=== PATIENT | female | born 1980 | race Hispanic/Latino ===

== ENCOUNTER → 2019-07-30 | Day surgery (SDC) | payer OTHER ==
--- NOTE | 2019-07-29 11:54 | Pre Op History & Physical ---
DATE OF SURGERY: July 30, 2019. CHIEF COMPLAINT: Chronic sinusitis, nasal obstruction, nasal deformity. HISTORY OF PRESENT ILLNESS: This 39 years old female has more than six months history of nasal obstruction. The patient has been treated with topical nasal steroids, antibiotics for more than 12 weeks. She has recurrent runny nose and postnasal drip. The patient has been treated by health navigator with allergy shots for three years with no improvement of the condition. CT scan of paranasal sinuses done before surgery showed the patient has deviated nasal septum to the left side with not much sinus problem during the CAT scan. REVIEW OF SYSTEMS: System review showed no recent cardiovascular, respiratory, or GI problems. PAST MEDICAL HISTORY: The patient has no significant medical problem. PAST SURGICAL HISTORY: She had previous right bunionectomy and cholecystectomy. ALLERGIES: SHE IS ALLERGIC TO SULFA. MEDICATIONS: She is on cyclobenzaprine and pantoprazole. SOCIAL HISTORY: Nonsmoker. Nondrinker. FAMILY HISTORY: Noncontributory. PHYSICAL EXAMINATION: VITAL SIGNS: On examination, the patient's vital signs were within normal limits. HEENT: Ear exam showed normal tympanic membranes bilaterally. Nasal exam showed hypertrophy of the inferior turbinate with deviated nasal septum to the left side about 40% with a spur. Oropharynx and oral cavity showed 2+ tonsils bilaterally with Mallampati level 2. NECK: Showed no lymph node or thyroid palpable. CHEST: Showed good air entry bilaterally. CARDIOVASCULAR: Showed S1 and S2. No murmur noted. ASSESSMENT AND PLAN: Mrs. Coffman has nasal obstruction, nasal deformity secondary to deviated nasal septum. The suggested treatment is a septoplasty and other necessary procedure. The complication of the procedure includes, but not limited to bleeding, infection, septal perforation, septal hematoma, persistent nasal obstruction, persistent nasal crusting, nasal deformity, recurrence of the sinus problem along with persistent drainage from the nose and persistent postnasal drip with CSF leak and blindness and double vision. Alternative will be continue observation, continue antibiotic therapy, topical nasal steroid therapy, systemic steroid therapy, decongestant. The patient has elected to undergo the surgical procedure. MD QUOC Olivas/SAM /[id number]
[~2019-07-30] MED LIST: DEXAMETHASONE SOD PHOS INJ 4 MG/ML VIAL ONE; EPINEPHRINE HCL 1:1000 1ML 1 MG/ML AMP ONE; FENTANYL CITRATE/PF 100MCG/2 ML INJ ONE; LIDOCAINE 1% W/EPINEPHRINE 20 ML VIAL ONE; LIDOCAINE HCL 2% LOCAL INJ 5 ML SDV VIAL INJ ONE; MIDAZOLAM HCL 2 MG/2 ML VIAL ONE; ONDANSETRON HCL INJ 2MG/ML 2ML 2 MG/ML VIAL ONE; PANTOPRAZOLE SO40 MG PO; PROPOFOL IV EMULSION 10 MG/ML 20 ML VIAL ONE; ROCURONIUM BROMIDE 10 MG/ML 5ML VIAL ONE; SEVOFLURANE INHAL SOLN 250 ML PEN BTL ONE; SUDAFED PE SIN1 EAC2; SUGAMMADEX SODIUM 200 MG/2 ML VIAL IV ONE; TYLENOL
[2019-07-30 09:15] VITALS: BP 118/68
--- NOTE | 2019-07-30 15:01 | Operative Report ---
DATE OF PROCEDURE: 07/30/2019 SURGEON: Scot Rueda MD PREOPERATIVE DIAGNOSES: Nasal obstruction and nasal deformity. POSTOPERATIVE DIAGNOSES: Nasal obstruction and nasal deformity. OPERATIVE PROCEDURE: Septoplasty and rigid nasal endoscopy. ANESTHESIA: Anesthesiology group. INDICATIONS: This 39-year-old female has history of nasal obstruction. The patient has postnasal drip and discharge from her nose. She has been treated with topical nasal steroid, decongestant, and antibiotics, with no improvement. On examination, she was noted to have a deviated nasal septum to the left side with a septal spur about 30% with a deviated nasal septum in the midportion on the right side about 20%. It was decided that septoplasty and other necessary procedure with a rigid nasal endoscopy will be beneficial for her. DESCRIPTION OF PROCEDURE: The patient was taken to the operating room, put under general anesthesia, endotracheally intubated. The nose was injected with 1% Xylocaine with 1:100,000 epinephrine for hemostasis. Epinephrine-soaked pledget was inserted in nose and subsequently removed. A hemitransfixion incision was done on the left side. The mucoperichondrial flap was elevated on the left. The bony cartilaginous junction was encountered and this was . The perpendicular plate of the ethmoid was transected. This was removed along with the vomer. The septal spur collagenous portion was removed using a [place] elevator and bony spur using a 4 mm straight chisel. During this procedure, the rigid nasal endoscopy, a 0-degree was used to assist in the dissection. The quadrangular cartilage after being freed from posterior and inferior constraint was able to swing back into the midline. The hemitransfixion incision was closed using 4-0 chromic suture in interrupted fashion. Septal whipstitch was done using 4-0 plain gut suture to reapproximate mucoperichondrial flap and prevent septal hematoma formation. A small piece of NasoPore was put on the left nasal cavity to reapproximate the mucoperichondrial flap to prevent synechiae formation. The patient tolerated the above procedure well. Estimated blood loss was about 20 mL. She was given 20 mg of Decadron intraoperatively. The patient was able to be transferred to recovery room in stable condition. MD QUOC Olivas/CLARICEL /[id number]
== END | disposition home or self-care (01) ==
LOC: OR 05:49
PROVIDERS: ATTEND Otolaryngology Otolaryngology/Facial Plastic Surgery
DX: J34.2 Deviated nasal septum (principal); J34.89 Other specified disorders of nose and nasal sinuses; Z88.2 Allergy status to sulfonamides
CPT/HCPCS: 30520; 81025; 88300; J0171; J1100; J2001; J2250; J2405; J2704; J3010